=== PATIENT | male | born 1990 | race Caucasian/White ===

== ENCOUNTER → 2023-02-08 13:27 | Outpatient (REF) | payer MEDICAID, SELFPAY ==
--- NOTE | 2023-02-08 13:38 | CA_ITS ---
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 The calculated ejection fraction is 63% by biplane method. - No obvious valvular pathology seen on this study. Findings Left Ventricle Normal left ventricular cavity size. There is normal left ventricular wall thickness. The left ventricular systolic function is normal. The calculated ejection fraction is 63% by biplane method. There is no evidence of regional wall motion abnormalities. Diastolic function is normal for age. LV peak GLS -19.7%. Right Ventricle Normal right ventricular cavity size and systolic function. Atria Both atria are normal in size. Aortic Valve There is a normal trileaflet aortic valve. There is no aortic valve stenosis. There is no aortic valve regurgitation. Mitral Valve The mitral valve appears normal. There is trace mitral valve regurgitation. There is no mitral valve stenosis. Pulmonic Valve The pulmonic valve is likely normal. There is trace pulmonic valve regurgitation. Tricuspid Valve Normal tricuspid valve structure. There is trace tricuspid valve regurgitation. There is no evidence of pulmonary hypertension. Great Vessels The asc aorta is normal in size. Venous The inferior vena cava is normal in size and collapses greater than 50% with inspiration. Pericardium/Pleural There is no evidence of pericardial effusion. Prior Study Comparison No prior study available for comparison. Recommendations, Care & Conclusions No obvious valvular pathology seen on this study. Measurements 2D Linear Measurements IVSd: 0.68 0.6-0.9/0.6-1.0 cm LVIDd: 4.92 3.9-5.3/4.2-5.9 cm LVIDd Index: 3.00 2.4-3.2/2.2-3.1 cm/m2 LVIDs: 2.87 2.0-3.6 cm LVPWd: 0.56 0.7-1.1 cm LA Diam: 3.10 2.7-3.8/3.0-4.0 cm LAIDs Index: 1.89 1.5-2.3 cm/m2 LV Mass: 119.00 67-162/88-224 g LV Mass Index: 72.56 43-95/49-115 g/m2 LVOT Diam: 2.20 3.0+(-)1.3 cm 2D Systolic Function EF 4C: 62.30 >55% EF 2C: 65.90 >55% EF BiP: 62.50 >55% Mitral Valve MV Pk E: 0.61 MV PK A: 0.41 MV Decel Time: 175.00 E/A: 1.50 E'Lateral: 18.80 E'Medial: 13.50 E/E' Med: 4.50 E/E' Lat: 3.30 PHT: 51.00 MVA PHT: 4.31 Decel Colbert: 3.50 Aortic Valve AoV Pk Ruben: 1.01 AoV Pk Grad: 4.00 AGUILAR: 3.33 LVOT LVOT Pk Ruben: 0.89 LVOT Mn Ruben: 0.59 LVOT VTI: 0.17 LVOT Pk Grad: 3.00 LVOT Mn Grad: 2.00 LVOT Diam: 2.20 LVOT Area: 3.80 Diastolic Function MV Pk E: 0.61 MV Pk A: 0.41 E/A: 1.50 E'Medial: 13.50 E/E' Med: 4.50 E' Laterial: 18.80 E/E' Lat: 3.30 Right Ventricle TAPSE (mm): 22.80 TVS' Ruben: 20.60 Tricuspid Valve TR Pk Ruben: 2.06 TR Pk Grad: 17.00 RA Press: 3.00 RVSP: 20.00 Great Vessels Aorta Sinus of Valsalva: 3.00 2.0-3.5 cm Ao Asc: 2.70 2.1-3.4 cm Pulmonary Veins Pulm Vein S/D 1.30 Pulmonary Valve PV Pk Ruben: 1.09 Peak PV Grad: 5.00 Updated in Other Vendor System with Status of Final Nikolas Gutierrez MD electronically signed on 02/09/2023 10:59:25 AM with status of Final
== END ==
LOC: HO.CARD 13:27
PROVIDERS: Visit Provider Nurse Practitioner Adult Health
DX: R55 Syncope and collapse (principal)
CPT/HCPCS: 93306; 93356